=== PATIENT | male | born 1955 | race Hispanic/Latino ===

== ENCOUNTER 2022-04-08 09:15 | Inpatient (IN) | payer OTHER, MEDICARE ==
[~2022-04-08] VITALS: Ht 170.2 cm; Wt 69.9 kg
[2022-04-08 09:47] LABS: EOSINOPHILS % (AUTO) 11.1 % (0.0-8.0); HEMATOCRIT 39.3 % (42-54); LYMPHOCYTES % (AUTO) 17.8 % (21.0-51.0); MEAN CORPUSCULAR HEMOGLOBIN 32.7 pg (27.0-33.0); MEAN CORPUSCULAR HGB CONC 34.6 g/dL (32.0-36.0); MEAN CORPUSCULAR VOLUME 94.5 fL (79-99); MONOCYTES % (AUTO) 6.4 % (3.0-13.0); NEUTROPHILS % (AUTO) 63.5 % (40.0-77.0); PLATELET COUNT (AUTO) 269 K/uL (130-400); RED BLOOD CELL COUNT(AUTO) 4.16 MIL/uL (4.50-6.20); WHITE BLOOD COUNT (AUTO) 8.3 K/uL (4.8-10.8)
[2022-04-08 10:05] LABS: ALBUMIN 3.9 g/dL (3.5-5.0); CREATININE 0.5 mg/dL (0.5-1.5); POTASSIUM 3.9 mmol/L (3.5-5.1); TOTAL PROTEIN, SERUM 7.6 g/dL (6.0-8.3)
[2022-04-08] MEDS ORDERED: IPRATROPIUM/ALBUTEROL SULFATE 3 ML SOLUTION IH ONE (10:30)
[2022-04-08 11:10] LABS: APPEARANCE,URINE CLOUDY (CLEAR); BILIRUBIN,URINE NEGATIVE (NEGATIVE); COLOR,URINE YELLOW (YELLOW); GLUCOSE, URINE (UA) NEGATIVE (NEGATIVE); KETONES,URINE 150 mg/dL (NEGATIVE); LEUKOCYTE ESTERASE ,URINE NEGATIVE Leu/uL (NEGATIVE); NITRATE,URINE NEGATIVE (NEGATIVE); OCCULT BLOOD,URINE NEGATIVE (NEGATIVE); PROTEIN,URINE 50 mg/dL (NEGATIVE)
[2022-04-08 11:19] LABS: BACTERIA,URINE FEW /HPF (None Seen); HYALINE CASTS, URINE 51-100 /LPF (0-1 /LPF); MUCUS,URINE RARE LPF (None Seen); RBC,URINE 0-1 /HPF (0-1)
[2022-04-08] MEDS ORDERED: ASPIRIN 81 MG EC TAB PO ONE (12:30)
[2022-04-08] MEDS ORDERED: ENOXAPARIN SODIUM 80 MG/0.8 ML SQ ONE (14:38)
[2022-04-08] MEDS: ENOXAPARIN SODIUM 1 MG/KG SQ SCH (14:45)
[2022-04-08] MEDS ORDERED: GUAIFENESIN-CODEINE 5 ML SYRUP PO ONE (15:30)
[2022-04-08] MEDS ORDERED: THIA500T3 PO (16:54)
[2022-04-08] MEDS ORDERED: METO-408 PO (16:54)
[2022-04-08] MEDS ORDERED: IPRATROPIUM/ALBUTEROL SULFATE 3 ML SOLUTION IH PRN (18:30)
[2022-04-08] MEDS: METOPROLOL SUCCINATE 25 MG TAB.SR.24H PO SCH (21:00)
[2022-04-08] MEDS: ENOXAPARIN SODIUM 80 MG/0.8 ML SQ SCH (21:00)
[2022-04-08] MEDS: GUAIFENESIN-DM 200/20 MG 10 ML PO PRN (21:01)
[2022-04-08] MEDS ORDERED: ALBUTEROL 0.083% 2.5 MG/3 ML INH IH ONE (22:30)
[2022-04-08] MEDS: SOLU-MEDROL 40MG VIAL IVP SCH (22:37)
[2022-04-08] MEDS: IPRATROPIUM/ALBUTEROL SULFATE 3 ML SOLUTION IH SCH (23:52)
[2022-04-09 00:20] VITALS: BP 144/80
[2022-04-09] MEDS: IPRATROPIUM/ALBUTEROL SULFATE 3 ML SOLUTION IH SCH ×6 (03:29→22:48)
[2022-04-09 04:00] VITALS: BP 142/83
[2022-04-09] MEDS: GUAIFENESIN-DM 200/20 MG 10 ML PO PRN ×2 (05:23→11:00)
[2022-04-09] MEDS: SOLU-MEDROL 40MG VIAL IVP SCH ×3 (06:01→22:35)
[2022-04-09] MEDS ORDERED: REGADENOSON 0.4 MG/5 ML PF SYG IVP SCH (07:00)
[2022-04-09] MEDS: ENOXAPARIN SODIUM 1 MG/KG SQ SCH (08:13)
[2022-04-09] MEDS: ASPIRIN 81MG CHEW TAB PO SCH (09:23)
[2022-04-09] MEDS: ENOXAPARIN SODIUM 80 MG/0.8 ML SQ SCH ×2 (09:23→19:36)
[2022-04-09] MEDS: CEFTRIAXONE 1G VIAL IVP SCH (09:23)
[2022-04-09] MEDS: THIAMINE HCL 100 MG TABLET PO SCH (09:23)
[2022-04-09 11:00] VITALS: BP 138/81
[2022-04-09] MEDS: AZITHROMYCIN 500MG+NS 250ML IVPB SCH (13:10)
[2022-04-09 16:00] VITALS: BP 130/85
[2022-04-09] MEDS ORDERED: TRAMADOL HCL 50 MG TABLET ONE (19:27)
[2022-04-09] MEDS ORDERED: ACETAMINOPHEN 325 MG TAB PO PRN (19:30)
[2022-04-09] MEDS: METOPROLOL SUCCINATE 25 MG TAB.SR.24H PO SCH (19:36)
[2022-04-09] MEDS: TRAMADOL HCL 50 MG TABLET PO PRN (19:36)
[2022-04-09 20:07] VITALS: BP 131/81
[2022-04-09 23:14] VITALS: BP 113/65
[2022-04-10] MEDS: IPRATROPIUM/ALBUTEROL SULFATE 3 ML SOLUTION IH SCH ×3 (02:33→10:15)
[2022-04-10 03:48] VITALS: BP 140/62
[2022-04-10] MEDS: GUAIFENESIN-DM 200/20 MG 10 ML PO PRN (04:15)
[2022-04-10] MEDS: TRAMADOL HCL 50 MG TABLET PO PRN (04:16)
[2022-04-10] MEDS: SOLU-MEDROL 40MG VIAL IVP SCH (05:30)
[2022-04-10] MEDS: CEFTRIAXONE 1G VIAL IVP SCH (05:30)
[2022-04-10] MEDS: AZITHROMYCIN 500MG+NS 250ML IVPB SCH (05:58)
[2022-04-10 08:00] VITALS: BP 127/69
[2022-04-10] MEDS: THIAMINE HCL 100 MG TABLET PO SCH (09:08)
[2022-04-10] MEDS: ASPIRIN 81MG CHEW TAB PO SCH (09:08)
[2022-04-10] MEDS: ENOXAPARIN SODIUM 80 MG/0.8 ML SQ SCH (09:09)
[2022-04-11] MEDS ORDERED: PREDNISONE 20 MG TABLET PO SCH (09:00)
== END 2022-04-10 11:50 | disposition home or self-care (01) | DRG 206 ==
LOC: EDH 09:15 → EDHIP 12:35 → 4AH 04-09 00:07
PROVIDERS: ADMIT Internal Medicine; ATTEND Internal Medicine
DX: M94.0 Chondrocostal junction syndrome [Tietze] (principal); J44.1 Chronic obstructive pulmonary disease with (acute) exacerbation; Z20.822 Contact with and (suspected) exposure to COVID-19; I10 Essential (primary) hypertension; F17.200 Nicotine dependence, unspecified, uncomplicated; Z79.899 Other long term (current) drug therapy; Z91.81 History of falling; Z86.16 Personal history of COVID-19
CPT/HCPCS: 36415; 70450; 71045; 78452; 80053; 81001; 82550; 83874; 84484; 85025; 87635; 87804; 92610; 93005; 93017; 93306; 93356; 94640; 94664; 96374; A9500; C9803; G0378; J0456; J0696; J1650; J2785; J2920